=== PATIENT | male | born 1965 | race Caucasian/White ===

== ENCOUNTER 2018-05-27 10:59 | Emergency (ER) | payer BC ==
--- OUTSIDE RECORDS SUMMARY | 2018-05-27 11:01 | XMS REPORT | Clinical Summary ---
:1965 Author Organization [facility] Address [address] [place] [address] Care Team Providers Name Role Phone Lashonda Harmon PA-C Primary Care Provider Allergies No Known Allergies Current Medications Prescription Sig. Disp. Refills Start Date End Date Status nebivolol (BYSTOLIC) 5 MG Take 5 mg by mouth Active tablet daily. adalimumab (HUMIRA) 20 Inject 40 mg under Active mg/0.4 mL injection kit the skin every 14 (fourteen) days. Active Problems No known active problems Family History Medical History Relation Name Comments Heart disease Father Hypertension Father Arthritis Mother Hypertension Mother Lung disease Sister Relation Name Status Comments Father Mother Sister Social History Tobacco Use Types Packs/Day Years Used Date Never Assessed Sex Assigned at Date Recorded Not on file Last Filed Vital Signs Not on file Plan of Treatment Health Maintenance Due Date Last Done Comments COLON CANCER SCREENING 2015 SHINGRIX VACCINE (#1) 2015 INFLUENZA VACCINE 02/15/2018 Results Not on fileafter 05/26/2017 Insurance Payer Benefit Plan / Group Subscriber ID Type Phone Address [facility] YATES xxxxxxxxx PPO Home: [id number] [phone] [place] [id number]
--- OUTSIDE RECORDS SUMMARY | 2018-05-27 11:01 | XMS REPORT ---
:1965 Author Organization [employer] Care Team Providers Name Role Phone Samira Cleaning Provider Role Unavailable Allergies No Known Allergies Problems Problem Type Condition Code Onset Dates Condition Status Problem Crohn''s disease without K50.90 Active complication, unspecified gastrointestinal tract location Problem Essential hypertension I10 Active Medications Medication Code System Code Instructions Start Date End Date Status Dosage Bystolic [facility] 36334439439 5 MG Orally Once Active 1 tablet a day Results No Known Results Summary Purpose eClinicalWorks Submission
--- OUTSIDE RECORDS SUMMARY | 2018-05-27 11:01 | XMS REPORT ---
:1965 [facility] Team Providers Name Role Phone Samira Cleaning Provider Role Unavailable Allergies, Adverse Reactions, Alerts Substance Reaction Event Type N.K.D.A. Info Not Available Non Drug Allergy Problems Problem Type Condition Code Onset Dates Condition Status Problem Crohn''s disease without K50.90 Active complication, unspecified gastrointestinal tract location Problem Essential hypertension I10 Active Assessment Fatigue, unspecified type R53.83 Active Assessment Encounter for prostate cancer Z12.5 Active screening Assessment Essential hypertension I10 Active Assessment Crohn''s disease without K50.90 Active complication, unspecified gastrointestinal tract location Medications Medication Code Code Instructions Start End Status Dosage System Date Date Gabapentin [facility] 81488244465 300 MG Orally Active 1 capsule Twice a day before bedtime HydrOXYzine HCl [facility] 75696392133 25 MG Orally Active 1 tablet as every 6 hrs needed Humira [facility] [address]-13 40 MG/0.8ML Active not defined Subcutaneous weekly Methotrexate ND 31262855343 Oral Active 1 tab Triamcinolone [facility] 63557769960 0.1 % September Active 1 application Acetonide Externally 26, to affected Twice a day 2018 area PredniSONE ND 02247380791 20 MG Orally Active 1 tablet BID Bystolic ND 90849597252 5 MG Orally Active not defined Once a day Results Name Result Date Reference Range Unit Abnormality Flag TSH ----TSH 1.43 [id number] 0.40-4.50 mIU/L N PSA, TOTAL ----PSA, TOTAL 0.5 [id number] < OR=4.0 ng/mL N LIPID PANEL ----NON HDL CHOLESTEROL 152 [id number] <130 mg/dL (calc) H ----LDL-CHOLESTEROL 120 49048108 mg/dL (calc) H ----CHOL/HDLC RATIO 3.7 [id number] <5.0 (calc) N ----HDL CHOLESTEROL 57 [id number] >40 mg/dL N ----TRIGLYCERIDES 199 [id number] <150 mg/dL H ----CHOLESTEROL, TOTAL 209 [id number] <200 mg/dL H Summary Purpose eClinicalWorks Submission
[2018-05-27] MEDS ORDERED: CYCLOBENZAPRINE 10 MG TAB ONE (12:03)
[2018-05-27] MEDS ORDERED: MEPERIDINE HCL 50 MG/ML AMP ONE (12:03)
[2018-05-27] MEDS ORDERED: ONDANSETRON 4 MG (ODT) TAB ONE (12:03)
--- NOTE | 2018-05-27 12:49 | EDPHYS ---
Physician Documentation [facility] Name: Abebe Cardona Jr Age: 53 yrs Sex: Male : 1965 Arrival Date: 05/27/2018 Time: 11:02 Bed 19 Private MD: KATHLEEN OLEA ED Physician Aakash Shahid HPI: 05/27 12:39 This 53 yrs old Male presents to ER via Wheelchair with complaints of Low jr8 Back Pain. 12:39 The patient presents with pain that is acute. The symptoms are located in the low back. jr8 The pain does not radiate. The problem was sustained when bending over. Onset: The symptoms/episode began/occurred acutely, today. Modifying factors: The patient symptoms are alleviated by nothing, the patient symptoms are aggravated by any movement. Associated signs and symptoms: The patient has no apparent associated signs or symptoms. Severity of symptoms: At their worst the symptoms were moderate, in the emergency department the symptoms are unchanged. The patient has not experienced similar symptoms in the past. The patient has not recently seen a physician. bent over to get a gas can and has sudden sharp pain in low back without any radiation, weakness, numbness, tingling, bowel or bladder dysfunction . Historical: - Allergies: 11:17 No Known Allergies; aa5 - PMHx: 11:17 Crohn's; Hypertension; aa5 11:19 Chronic back pain; aa5 - PSHx: 11:17 colon resection; Ostomy reversal.; aa5 - Immunization history:: Adult Immunizations unknown. - Social history:: Smoking status: Patient/guardian denies using tobacco. - Ebola Screening: : No symptoms or risks identified at this time. ROS: 12:39 Eyes: Negative for injury, pain, redness, and discharge, ENT: Negative for injury, jr8 pain, and discharge, Neck: Negative for injury, pain, and swelling, Cardiovascular: Negative for chest pain, palpitations, and edema, Respiratory: Negative for shortness of breath, cough, wheezing, and pleuritic chest pain, Abdomen/GI: Negative for abdominal pain, nausea, vomiting, diarrhea, and constipation, MS/Extremity: Negative for injury and deformity, Skin: Negative for injury, rash, and discoloration, Neuro: Negative for headache, weakness, numbness, tingling, and seizure. 12:39 Back: Positive for pain at rest, pain with movement, of the low back area, Negative for radiated pain. Exam: 12:39 Eyes: Pupils equal round and reactive to light, extra-ocular motions intact. Lids and jr8 lashes normal. Conjunctiva and sclera are non-icteric and not injected. Cornea within normal limits. Periorbital areas with no swelling, redness, or edema. ENT: Nares patent. No nasal discharge, no septal abnormalities noted. Tympanic membranes are normal and external auditory canals are clear. Oropharynx with no redness, swelling, or masses, exudates, or evidence of obstruction, uvula midline. Mucous membranes moist. Neck: Trachea midline, no thyromegaly or masses palpated, and no cervical lymphadenopathy. Supple, full range of motion without nuchal rigidity, or vertebral point tenderness. No Meningismus. Cardiovascular: Regular rate and rhythm with a normal S1 and S2. No gallops, murmurs, or rubs. Normal PMI, no JVD. No pulse deficits. Respiratory: Lungs have equal breath sounds bilaterally, clear to auscultation and percussion. No rales, rhonchi or wheezes noted. No increased work of breathing, no retractions or nasal flaring. Abdomen/GI: Soft, non-tender, with normal bowel sounds. No distension or tympany. No guarding or rebound. No evidence of tenderness throughout. Skin: Warm, dry with normal turgor. Normal color with no rashes, no lesions, and no evidence of cellulitis. MS/ Extremity: Pulses equal, no cyanosis. Neurovascular intact. Full, normal range of motion. Neuro: Awake and alert, GCS 15, oriented to person, place, time, and situation. Cranial nerves II-XII grossly intact. Motor strength 5/5 in all extremities. Sensory grossly intact. Cerebellar exam normal. Normal gait. 12:39 Back: pain, that is moderate, of the low back area, ROM is painful, normal spinal alignment noted, CVA tenderness, is absent, vertebral tenderness, is appreciated at L4, muscle spasm, is appreciated in the left low back, left mid back, right mid back and right low back. Vital Signs: 11:17 BP 133 / 81; Pulse 62; Resp 16 S; Temp 97.9(O); Pulse Ox 99% on R/A; Weight 90.72 kg aa5 (R); Height 6 ft. 2 in. (187.96 cm) (R); Pain 02/24; 11:17 Body Mass Index 25.68 (90.72 kg, 187.96 cm) aa5 MDM: 11:09 Patient medically screened. jr8 12:39 Data reviewed: vital signs, nurses notes, and as a result, I will discharge patient. jr8 Data interpreted: Pulse oximetry: on room air is 99 %. Interpretation: normal. Counseling: I had a detailed discussion with the patient and/or guardian regarding: the historical points, exam findings, and any diagnostic results supporting the discharge/admit diagnosis, the need for outpatient follow up, a family practitioner, to return to the emergency department if symptoms worsen or persist or if there are any questions or concerns that arise at home. Response to treatment: the patient's symptoms have markedly improved after treatment. Administered Medications: 12:02 Drug: Demerol 50 mg Route: IM; Site: left deltoid; em 12:50 Follow up: Response: No adverse reaction; Pain is decreased em 12:03 Drug: Zofran 4 mg Route: PO; em 13:16 Follow up: Response: No adverse reaction em 12:03 Drug: Flexeril 10 mg Route: PO; em 13:17 Follow up: Response: No adverse reaction; Pain is decreased em Disposition: 16:30 Co-signature as Attending Physician, Aakash Shahid MD. Disposition: 05/27/18 12:48 Discharged to Home. Impression: Low back pain. - Condition is Stable. - Discharge Instructions: Back Pain, Adult, Musculoskeletal Pain, Back Exercises, [id number], Heat Therapy. - Prescriptions for Ibuprofen 800 mg Oral Tablet - take 1 tablet by ORAL route every 12 hours As needed take with food; 20 tablet. Tylenol- Codeine #3 300-30 mg Oral Tablet - take 2 tablets by ORAL route every 6 hours As needed; 20 tablet. Cyclobenzaprine 10 mg Oral Tablet - take 1 tablet by ORAL route every 8 hours As needed; 30 tablet. - Medication Reconciliation Form, Thank You Letter, Antibiotic Education, Prescription Opioid Use form. - Follow up: KATHLEEN OLEA; When: 7 - 10 days; Reason: Recheck today's complaints, Continuance of care, Re-evaluation by your physician. - Problem is new. - Symptoms have improved. Signatures: Justin Fish, BUTADIENE CONVERTER HELPER BUTADIENE CONVERTER HELPER em Melisa Partida RN RN aa5 Margarito Wheeler PA PA jr8 Aakash Shahid MD MD gs Corrections: (The following items were deleted from the chart) 13:23 12:48 05/27/2018 12:48 Discharged to Home. Impression: Low back pain. Condition is em Stable. Forms are Medication Reconciliation Form, Thank You Letter, Antibiotic Education, Prescription Opioid Use. Follow up: KATHLEEN OLEA; When: 7 - 10 days; Reason: Recheck today's complaints, Continuance of care, Re-evaluation by your physician. Problem is new. Symptoms have improved. jr8
--- NOTE | 2018-05-27 12:49 | ER ---
Nurse's Notes [facility] Name: Abebe Cardona Jr Age: 53 yrs Sex: Male : 1965 Arrival Date: 05/27/2018 Time: 11:02 Bed 19 Private MD: KATHLEEN OLEA Diagnosis: Low back pain Presentation: 05/27 11:13 Presenting complaint: Patient states: lower back pain that began today after bending aa5 over. pt sates "I always have back pain but I hurt it today". 11:13 Transition of care: patient was not received from another setting of care. Onset of aa5 symptoms was May 27, 2018. Risk Assessment: Do you want to hurt yourself or someone else? Patient reports no desire to harm self or others. Initial Sepsis Screen: Does the patient meet any 2 criteria? No. Patient's initial sepsis screen is negative. Does the patient have a suspected source of infection? No. Patient's initial sepsis screen is negative. Care prior to arrival: None. 11:13 Method Of Arrival: Wheelchair aa5 11:13 Acuity: NIDIA 3 aa5 Historical: - Allergies: 11:17 No Known Allergies; aa5 - PMHx: 11:17 Crohn's; Hypertension; aa5 11:19 Chronic back pain; aa5 - PSHx: 11:17 colon resection; Ostomy reversal.; aa5 - Immunization history:: Adult Immunizations unknown. - Social history:: Smoking status: Patient/guardian denies using tobacco. - Ebola Screening: : No symptoms or risks identified at this time. Screenin:45 Abuse screen: Denies threats or abuse. Nutritional screening: No deficits noted. em Tuberculosis screening: No symptoms or risk factors identified. Fall Risk None identified. Assessment: 11:30 General: Appears in no apparent distress. uncomfortable, Behavior is calm, cooperative. em Pain: Complains of pain in low back area Pain currently is 8 out of 10 on a pain scale. Neuro: Level of Consciousness is awake, alert, obeys commands, Oriented to person, place, time, situation, Moves all extremities. Intact. Cardiovascular: Capillary refill < 3 seconds Patient's skin is warm and dry. Respiratory: Airway is patent Respiratory effort is even, unlabored, Respiratory pattern is regular, symmetrical. GI: Abdomen is flat, Patient currently denies nausea, vomiting. : No signs and/or symptoms were reported regarding the genitourinary system. EENT: No signs and/or symptoms were reported regarding the EENT system. Derm: Skin is intact, Skin is pink, warm \\T\\ dry. Musculoskeletal: Circulation, motion, and sensation intact. Capillary refill < 3 seconds. 12:44 Reassessment: Patient appears in no apparent distress at this time. Patient and/or em family updated on plan of care and expected duration. Pain level reassessed. Patient is alert, oriented x 3, equal unlabored respirations, skin warm/dry/pink. Patient states feeling better. 13:00 Reassessment: Patient appears in no apparent distress at this time. i agree with above iw assessment by Justin Fish LVN. Vital Signs: 11:17 BP 133 / 81; Pulse 62; Resp 16 S; Temp 97.9(O); Pulse Ox 99% on R/A; Weight 90.72 kg aa5 (R); Height 6 ft. 2 in. (187.96 cm) (R); Pain 8/10; 11:17 Body Mass Index 25.68 (90.72 kg, 187.96 cm) aa5 ED Course: 11:02 Patient arrived in ED. rg4 11:02 KATHLEEN OLEA is Private Physician. rg4 11:08 Arm band placed on. aa5 11:09 Margarito Wheeler PA is PHCP. jr8 11:09 Aakash Shahid MD is Attending Physician. jr8 11:16 Triage completed. aa5 11:26 Justin Fish LVN is Primary Nurse. em 11:45 Patient has correct armband on for positive identification. Placed in gown. Bed in low em position. Adult w/ patient. 12:48 KATHLEEN OLEA is Referral Physician. jr8 13:23 No provider procedures requiring assistance completed. em 13:23 Patient did not have IV access during this emergency room visit. em Administered Medications: 12:02 Drug: Demerol 50 mg Route: IM; Site: left deltoid; em 12:50 Follow up: Response: No adverse reaction; Pain is decreased em 12:03 Drug: Zofran 4 mg Route: PO; em 13:16 Follow up: Response: No adverse reaction em 12:03 Drug: Flexeril 10 mg Route: PO; em 13:17 Follow up: Response: No adverse reaction; Pain is decreased em Outcome: 12:48 Discharge ordered by MD. hankins 13:23 Discharged to home ambulatory, with family. em 13:23 Condition: good 13:23 Discharge instructions given to patient, family, Instructed on discharge instructions, follow up and referral plans. no drinking with medication, no driving heavy equipment, medication usage, Demonstrated understanding of instructions, follow-up care, medications, Prescriptions given X 3. 13:23 Patient left the ED. em Signatures: Justin Fish, CASE PICKER CASE PICKER em Nighat Carrasco, RN RN Melisa Hendrickson RN RN pierce5 Margarito Wheeler PA PA jr8 Garcia, Rubi rg4
== END 2018-05-27 13:23 | disposition home or self-care (01) ==
LOC: ER 10:59
DX: M54.5 Low back pain (principal)
CPT/HCPCS: 96372; 99283; J2175